=== PATIENT | female | born 1960 | race Caucasian/White ===

== ENCOUNTER → 2017-01-02 | Outpatient (CLI) | payer OTHER ==
[2017-01-02 08:55] LABS: ALBUMIN 4.3 g/dL (3.4-5.0); TOTAL PROTEIN 7.9 g/dL (6.4-8.5)
== END ==
LOC: LAB 08:25
PROVIDERS: ATTEND Internal Medicine Gastroenterology
DX: K75.81 Nonalcoholic steatohepatitis (NASH) (principal)
CPT/HCPCS: 36415; 80076; 82465